=== PATIENT | female | born 1945 | race Caucasian/White ===

== ENCOUNTER 2019-01-09 17:31 | Emergency (ER) | payer BC ==
--- NOTE | 2019-01-09 18:13 | Emergency Department Record ---
History of Present Illness - General Chief complaint: Edema Stated complaint: SWELLING IN RT LEG Time Seen by Provider: 01/09/19 18:09 Source: Patient Mode of Arrival: Ambulatory Limitations: No limitations - History of Present Illness Initial comments: 73 yo female presents to ED for evaluation of bilateral lower extremity swelling , R>L for the past 2 weeks following a trip (driving) to [place]. Patient denies calf pain, redness, or history of DVT/PE. Patient denies previous history of CHF, cardiac problems, and denies shortness of breath symptoms. MD Complaint: Extremity swelling Onset/Timin -: Week(s) Location: Bilateral, Lower Leg History of Same: No Consistency: Constant Improves with: Elevation Worsens with: Walking - Related Data Home Medications Medication Instructions Recorded Confirmed Last Taken Amlodipine Besylate [Norvasc] 10 mg PO DAILY 01/09/19 01/09/19 01/09/19 Aspirin [Adult Aspirin Regimen] 81 mg PO DAILY 01/09/19 01/09/19 01/09/19 Atorvastatin Calcium 20 mg PO DAILY 01/09/19 01/09/19 01/09/19 Cholecalciferol (Vitamin D3) 5,000 unit PO DAILY 01/09/19 01/09/19 Unknown [Vitamin D3] Losartan/Hydrochlorothiazide 1 tab PO DAILY 01/09/19 01/09/19 01/09/19 [Losartan-Hctz 100-25 mg Tab] Montelukast Sodium [Singulair] 10 mg PO DAILY 01/09/19 01/09/19 01/09/19 Omeprazole [Prilosec] 20 mg PO DAILY 01/09/19 01/09/19 01/09/19 Allergies Allergy/AdvReac Type Severity Reaction Status Date / Time No Known Drug Allergies Allergy Verified 01/09/19 17:39 Travel Screening - Travel/Exposure Within Last 30 Days Have you traveled within the last 30 days?: Yes Location Detail:: [place] - Travel/Exposure Within Last Year Have you traveled outside the [place] in the last year?: Yes Location Detail:: [facility] [employer] - Additonal Travel Details Have you been exposed to anyone with a communicable illness?: No - Travel Symptoms Symptom Screening: None Review of Systems Constitutional: Denies: Chills, Fever Eyes: Denies: Eye discharge, Eye pain ENT: Denies: Congestion, Epistaxis Respiratory: Denies: Cough Cardiovascular: Reports: Edema. Denies: Chest pain, Dyspnea on exertion Endocrine: Denies: Fatigue, Heat or cold intolerance Gastrointestinal: Denies: Abdominal pain, Vomiting Genitourinary: Denies: Incontinence, Retention Musculoskeletal: Denies: Arthralgia, Back pain Skin: Denies: Bruising, Change in color Neurological: Denies: Abnormal gait, Confusion, Headache Psychiatric: Denies: Anxiety Hematological/Lymphatic: Denies: Anemia, Blood Clots Past Medical History - SOCIAL HISTORY Smoking Status: Former smoker Alcohol Use: Rare Drug Use: None - RESPIRATORY Hx Respiratory Disorders: No - CARDIOVASCULAR Hx Cardio Disorders: Yes Hx Hypertension: Yes Comment:: chol - NEURO Hx Neuro Disorders: No - GI Hx GI Disorders: Yes Hx Reflux: Yes Hx of Polyps: Yes - Hx Genitourinary Disorders: No - ENDOCRINE Hx Endocrine Disorders: No - MUSCULOSKELETAL Hx Musculoskeletal Disorders: Yes Comment:: Osteopenia - PSYCH Hx Psych Problems: No - HEMATOLOGY/ONCOLOGY Hx Hematology/Oncology Disorders: Yes Hx Cancer: Yes (cancerous polyp removed) Family Medical History Any Significant Family History?: Yes Hx Cancer: Mother *Cancer Comment: esogeon cancer Hx HTN: Father, Mother Physical Exam - General General Appearance: Alert, Oriented x3, Cooperative, Mild distress Limitations: No limitations - Head Head exam: Atraumatic, Normocephalic, Normal inspection Head exam detail: negative: Abrasion, Contusion, Mistry's sign, General tenderness, Hematoma, Laceration - Eye Eye exam: Normal appearance. negative: Conjunctival injection, Periorbital swelling, Periorbital tenderness, Scleral icterus - ENT Ear exam: negative: Auricular hematoma, Auricular trauma Nasal Exam: negative: Active bleeding, Discharge, Dried blood, Foreign body Mouth exam: negative: Drooling, Laceration, Muffled voice, Tongue elevation - Neck Neck exam: Normal inspection. negative: Meningismus, Tenderness - Respiratory Respiratory exam: Normal lung sounds bilaterally. negative: Respiratory distress, Rhonchi, Stridor, Wheezes - Cardiovascular Cardiovascular Exam: Regular rate, Normal rhythm, Normal heart sounds - GI/Abdominal GI/Abdominal exam: Soft. negative: Distended, Rebound, Rigid, Tenderness - Rectal Rectal exam: Deferred - exam: Deferred - Extremities Extremities exam: Pedal edema (Trace edema bilaterally). negative: Calf tenderness, Tenderness - Back Back exam: Denies: CVA tenderness (R), CVA tenderness (L) - Neurological Neurological exam: Alert, Normal gait, Oriented X3 - Psychiatric Psychiatric exam: Normal affect, Normal mood - Skin Skin exam: Normal color. negative: Abrasion Type of lesion: negative: abrasion Course Vital Signs 01/09/19 17:46 Temperature 98.2 F Pulse Rate 98 H Respiratory 20 Rate Blood Pressure 160/90 Pulse Ox 97 - Reevaluation(s) Reevaluation #1: 01/09/19 18:55 EKG: NSR 83 LAD, normal intervals No acute ST-T wave changes Reevaluation #2: 01/09/19 19:29 Laboratory studies were reviewed and are grossly unremarkable for an acute process. US doppler of the lower extremities bilaterally: No evidence for DVT. BNP and renal functions tests are normal, no clinical evidence for CHF on examination. Patient and her daughter were updated on all results, all questions were answered, and the patient appears stable for discharge at this time with instructions for lower extremity elevation. Medical Decision Making - Lab Data Result diagrams: 01/09/19 18:42 01/09/19 18:42 Disposition Disposition: Discharge Clinical Impression: Peripheral edema Disposition: Home, Self-Care Condition: (2) Stable Instructions: Leg Edema (ED) Additional Instructions: Return to ED if your symptoms worsen or if you have any concerns. Elevate the lower extremities as needed. Follow-up with your family doctor in 3-5 days as directed. Forms: Patient Portal Access Time of Disposition: 19:31 Quality - Quality Measures Quality Measures: N/A - Blood Pressure Screening Does Patient Have Any of the Following: Active Dx of HTN Blood Pressure Classification: Hypertensive Reading Systolic Measurement: 160 Diastolic Measurement: 90 Screening for High Blood Pressure: Patient Exclusion, Hx of HTN [G9744]
[2019-01-09 19:01] LABS: BASO % 0.6 % (0-6); EOS % 1.9 % (0-6); HEMATOCRIT 39.9 % (35.0-47.0); HEMOGLOBIN 13.3 gm/dl (11.6-16.0); LYMPH % 15.4 % (16-45); MEAN CELL VOLUME 89.9 fl (81-97); MEAN CORPUSCULAR HGB CONC 33.3 g/dl (32-36); MEAN PLATELET VOLUME 10.4 fl (7.4-10.4); MONO % 8.1 % (0-9); PLATELET COUNT 298 K/uL (130-400); RED BLOOD COUNT 4.44 M/uL (3.80-5.40); RED CELL DISTRIBUTION WIDTH 13.5 % (11.5-14.5); WHITE BLOOD COUNT W/O DIFF 10.5 K/uL (4.2-12.2)
[2019-01-09 19:15] LABS: BLOOD UREA NITROGEN 17 mg/dL (8-23)
[2019-01-09 19:16] LABS: CREATININE 0.7 mg/dL (0.5-0.9); EST GLOMERULAR FILTRATION RATE > 60 mL/min; TOTAL PROTEIN 7.9 g/dL (6.6-8.7)
[2019-01-09 19:18] LABS: GLUCOSE,RANDOM 104 mg/dL (74-109)
[2019-01-09 19:21] LABS: ALB/GLOB RATIO 1.5 (1.1-1.8); ALBUMIN 4.8 g/dL (4.0-5.0); ALKALINE PHOSPHATASE 69 U/L (35-104); ALT/SGPT 31 U/L (<33); AST/SGOT 25 U/L (10.0-35.0)
--- NOTE | 2019-01-12 13:44 | US VENOUS DOPPLER REPORT ---
EXAM: BILATERAL LOWER EXTREMITY VENOUS DUPLEX ULTRASOUND HISTORY: BILATERAL LEG SWELLING, RECENT TRAVEL. TECHNIQUE: Bilateral lower extremity venous Duplex ultrasound was obtained with evaluation of compression, augmentation and color flow. Comparison: None. FINDINGS: No evidence of thrombus involving the right external iliac, common femoral, profunda femoral, proximal/mid /distal femoral, popliteal, posterior tibial, peroneal or anterior tibial veins. No evidence of thrombus involving the left external iliac, common femoral, profunda femoral, proximal/mid/distal femoral, popliteal, posterior tibial, peroneal, or anterior tibial veins. IMPRESSION: NO EVIDENCE OF DEEP VENOUS THROMBOSIS IN THE RIGHT OR LEFT LOWER EXTREMITIES. JOB NUMBER: [id number] MTDD
== END 2019-01-09 19:44 | disposition home or self-care (01) ==
LOC: ER 17:31
DX: R60.0 Localized edema (principal); I10 Essential (primary) hypertension; Z87.81 Personal history of (healed) traumatic fracture
CPT/HCPCS: 80053; 83880; 85025; 93005; 93010; 93970; 99284

== ENCOUNTER 2019-01-12 10:40 | Day surgery (SDC) | payer BC ==
[2019-01-12] MEDS ORDERED: PROPOFOL 10 MG/ML VIAL IV ONE (10:41)
[2019-01-12] MEDS ORDERED: LIDOCAINE 2% MDV (20MG/ML) 20ML VIAL IV ONE (10:41)
--- NOTE | 2019-01-13 14:40 | Operative Note ---
DATE OF SURGERY: 01/12/2019 OPERATION: COLONOSCOPY to the cecum with cold snare polypectomy x2, electrocautery snare x1, and biopsy. INDICATION: History of adenomatous polyps in the past. The patient returns at this time after 5 years for surveillance. ANESTHESIA: Intravenous sedation was administered by the department of anesthesiology and included Diprivan titrated to effect. PROCEDURE: Following informed consent from this alert individual including a discussion of the risks and benefits of the procedure and an opportunity for the patient to ask questions, the patient was in the left lateral decubitus position. A digital rectal examination was performed. No abnormalities were noted. There were some external hemorrhoids which were small noted. Again, no rectal digital abnormalities were detected. Following this, the Olympus [id number] video colonoscope was inserted into the rectum without resistance. The rectal mucosa had a normal appearance with normal folds and distensibility. In the sigmoid colon, there was diverticulosis noted and a large submucosal lesion or a soft lesion which pillowed with forceps when pushed. This was present 5 years ago and presumably related to a submucosal lipoma. The colonoscope was then further advanced up through the bowel to the level of the cecum. The cecum was defined by noting the appendiceal orifice and ileocecal valve. There was some retained solid stool within the cecum and washing was employed vigorously. As best visualized, there were no cecal lesions noted. From this point, the colonoscope was slowly withdrawn. No changes were noted in the ascending, transverse, or descending colon. Again in the sigmoid colon there was a very large 3-4 cm soft lesion which pillowed again with biopsy forceps. Multiple biopsies were taken first of tissue itself and then a portion of the lesion was removed with electrocautery snare polypectomy. Also noted was a small 5 mm polyp near the large lesion which was removed with cold snare polypectomy. In addition, a 5 mm distal rectal polyp was removed with cold snare polypectomy as well. Again diverticulosis was quite apparent through the sigmoid colon. The endoscope was then retroflexed in the rectum. No additional changes were appreciated. The endoscope was straightened and removed. The patient tolerated the procedure well and was returned to the recovery area in stable condition. IMPRESSION: 1. Large sigmoid submucosal-appearing lesion which pillowed with forceps. Biopsies taken and a portion of it was removed with electrocautery snare polypectomy. 2. A 5 mm sigmoid polyp removed with cold snare polypectomy. 3. A 5 mm rectal polyp removed with cold snare polypectomy. 4. Extensive sigmoid diverticulosis. 5. Small external hemorrhoids. RECOMMENDATIONS: Further recommendations will be forthcoming pending results of pathology obtained today. The patient was advised she should receive a copy of her pathology report in the next 2-3 weeks. Followup will also be with her primary care physician, Dr. Chowdary. As always, thank you for allowing me to participate in the care of your patient. CC: Dr. Maldonado ROY
== END 2019-01-12 13:05 | disposition home or self-care (01) ==
LOC: HOP 10:40
PROVIDERS: ATTEND Internal Medicine Gastroenterology
DX: Z12.11 Encounter for screening for malignant neoplasm of colon (principal); Z86.010 Personal history of colon polyps; D12.5 Benign neoplasm of sigmoid colon; D12.8 Benign neoplasm of rectum; K57.30 Diverticulosis of large intestine without perforation or abscess without bleeding; I10 Essential (primary) hypertension; E78.00 Pure hypercholesterolemia, unspecified; K21.9 Gastro-esophageal reflux disease without esophagitis